=== PATIENT | female | born 1960 | race Caucasian/White ===

== ENCOUNTER → 2020-05-13 12:38 | Outpatient (CLI) | payer OTHER, SELFPAY ==
--- NOTE | ~2020-05-13 | MM_ITS ---
EXAMINATION: MM screening jessica BI w hellen HISTORY: Screening TECHNIQUE: Craniocaudal and mediolateral oblique 3-D tomosynthesis images were obtained and synthetic 2-D images were generated. CAD analysis was submitted and interpreted. COMPARISON: Comparison to multiple prior studies sequentially, with oldest reviewed study dated 02/20. BREAST PARENCHYMAL COMPOSITION: There are scattered areas of fibroglandular density. FINDINGS: There is no evidence of suspicious mass, calcification, or architectural distortion to sugg est malignancy in either breast. There has been no suspicious interval change. IMPRESSION: 1. No mammographic evidence of malignancy. 2. Recommend routine screening mammography in one year. BI-RADS Category 1: Negative Reviewed, dictated and finalized at location A.
== END ==
PROVIDERS: PCP Internal Medicine; Visit Provider Obstetrics & Gynecology
DX: Z12.31 Encounter for screening mammogram for malignant neoplasm of breast (principal)
CPT/HCPCS: 77063; 77067

== ENCOUNTER → 2021-04-18 14:16 | Outpatient (CLI) | payer OTHER, SELFPAY ==
--- NOTE | ~2021-04-18 | MR_ITS ---
EXAMINATION: MR brain/brain stem wo/w con EXAM DATE: 04/18/2021 15:31 INDICATION: Mental status change. Confusion. TECHNIQUE: Magnetic resonance imaging (MRI) of the brain/brain stem obtained without contrast. Sagit josh T1, axial diffusion, gradient echo (T2*), T1, T2, FLAIR sequences obtained. Patient was then inj ected with 10 cc intravenous Multihance contrast. Axial and coronal postcontrast T1 weighted sequence s obtained. There is no prior study for comparison. FINDINGS: Study is limited due to patient motion, some sequences were repeated. There are no areas of restricted diffusion to suggest acute infarction. There is no acute hemorrhage seen on the T2*, a hemosiderin sensitive sequence. No intraparenchymal brain mass. The ventricles are normal in size. There are no extra-axial collections. Flow voids are seen in the cerebral arteries on the T2-weight ed sequences consistent with their expected patency. The orbits are unremarkable. Soft tissue is un remarkable. There are no areas of abnormal enhancement on the postcontrast images. IMPRESSION: 1. Unremarkable brain MRI examination. Reviewed, dictated and finalized at location A.
[2021-04-18 15:11] LABS: Estimated Glomerular Filt Rate 56
== END ==
PROVIDERS: PCP Internal Medicine
DX: R41.82 Altered mental status, unspecified (principal)
CPT/HCPCS: 70553; A9577

== ENCOUNTER → 2021-05-30 10:42 | Outpatient (CLI) | payer OTHER, SELFPAY ==
--- NOTE | ~2021-05-30 | MM_ITS ---
EXAMINATION: MM screening jessica BI w hellen HISTORY: Screening TECHNIQUE: Craniocaudal and mediolateral oblique 3-D tomosynthesis images were obtained and synthetic 2-D images were generated. CAD analysis was submitted and interpreted. COMPARISON: Comparison to multiple prior studies sequentially, with oldest reviewed study dated 02/22. BREAST PARENCHYMAL COMPOSITION: There are scattered areas of fibroglandular density. FINDINGS: There is no evidence of suspicious mass, calcification, or architectural distortion to sugg est malignancy in either breast. There has been no suspicious interval change. IMPRESSION: 1. No mammographic evidence of malignancy. 2. Recommend routine screening mammography in one year. BI-RADS Category 1: Negative Reviewed, dictated and finalized at location A.
== END ==
PROVIDERS: PCP Internal Medicine; Visit Provider Obstetrics & Gynecology
DX: Z12.31 Encounter for screening mammogram for malignant neoplasm of breast (principal)
CPT/HCPCS: 77063; 77067

== ENCOUNTER 2022-02-21 08:41 | Emergency (ER) | payer OTHER, SELFPAY ==
--- NOTE | 2022-02-21 08:47 | ED.PSYCH ---
HPI - Psych General Chief Complaint: Psychiatric Symptoms Stated Complaint: AMBULANCE Source: patient, EMS and RN notes reviewed Mode of arrival: EMS Limitations: no limitations History of Present Illness HPI Narrative: Patient presents by EMS combative, screaming, grabbing at the EMS staff and hitting them. She is screaming that she is , incoherent references to colors red blue and white.Stating she wants to . I spoke with her following arrival and nurses spoke with following arrival. Apparently her [id number] 3 weeks ago. Rafaela had been dealing with getting hospital equipment into the [id number]'s room only for the [id number] to pass away 3 days later. Then she had to get all the medical equipment out of the room again and had to do all this by herself. she has been awake for greater than 24 hours and her states she has not been drinking fluids like she normally does. She has been under a lot of stress with the of the mother long and a 1 year anniversary of a cousin that that she was very close to in [place]. She was unable to go to [place] last year due to COVID. She has been rearranging furniture in the living room at home and not throwing things but when something gets in the way tossing it aside apparently broke a lamp. She had a full evaluation in [facility] and was sent to another physician who arranged her to see a psychologist. Psychologist felt that she needed psychiatric intervention at that time and she has an appointment in March. She has been using some Ativan and sometimes that helps and sometimes it does not. MD complaint: suicidal ideation and altered mental status Onset (ago): day(s) (1) Duration: constant History of same: No Relieving factors: none Exacerbating factors: none Associated psychiatric symptoms: suicidal ideation, racing thoughts and delusions Associated symptoms: insomnia Treatments prior to arrival: chemical restraints (Haldol and Versed) Related Data Home Medications Medication Instructions Recorded Confirmed lisinopril 2.5 mg tablet 2.5 mg PO DAILY 02/21/22 02/21/22 paroxetine HCl 20 mg tablet 20 mg PO DAILY 02/21/22 02/21/22 rosuvastatin 10 mg tablet 10 mg PO DAILY 02/21/22 02/21/22 Allergies Allergy/AdvReac Type Severity Reaction Status Date / Time No Known Allergies Allergy Verified 02/21/22 09:12 Review of Systems Review of Systems: ROS unobtainable: Yes unobtainable due to mental status [facility] Past Medical History Medical History (Updated 02/21/22 @ 13:00 by Evans Cristina MD) Anxiety and depression Hyperlipidemia Hypertension Seasonal allergies Social History Social History Substance use type: does not use Exam Const: General: healthy appearing Nutritional Appearance: thin Limitations: altered mental status HENMT: Head: normal to inspection Ears: external ears normal General nose exam: Normal external nose present Face and sinus: normal facial exam Eyes: Conjunctivae: conjunctivae normal Pupils: Equal, round and reactive pupils present EOM: EOMs intact bilaterally Neck: Neck: normal visual inspection Resp: Effort & Inspection: normal respiratory effort Auscultation: clear to auscultation bilaterally Cardio: Rate: tachycardic Rhythm: regular rhythm GI: GI Palp: Yes Soft to palpation and No Tenderness to palpation present (GI) Auscultation: normal bowel sounds Back/Spine/Pelvis: Cervical Spine: cervical ROM normal Thoracic/Lumbar Spine: thoraco-lumbar ROM normal Skin: General skin exam: normal color Wounds: no wounds Neuro: General: patient oriented x3, moves all extremities, no focal motor deficits and CN's II-XI intact bilaterally Speech: normal speech Extrem: General: normal to inspection and no clubbing, cyanosis or edema Psych: Speech and movement: Pressured speech present and Psychomotor agitation in speech present Affect: Labile affect present Attitude: Belligerent
[2022-02-21 09:02] VITALS: BP 140/107; PULSE 128; RESP 16; TEMP 36.6; O2SAT 100
[2022-02-21 09:20] LABS: Basophils Absolute Auto 0.08 K/mm3 (0.00-0.10); Basophils Percent Auto 0.6 % (0.0-1.0); Eosinophils Absolute Auto 0.03 K/mm3 (0.02-0.50); Eosinophils Percent Auto 0.2 % (1.0-6.0); Hematocrit 36.6 % (35.0-49.0); Immature Granulocyte Absolute 0.12 K/mm3 (0.00-0.00); Immature Granulocyte Percent A 0.9 % (0.0-0.0); Lymphocytes Absolute Auto 1.81 K/mm3 (1.10-4.50); Lymphocytes Percent Auto 14.1 % (18.0-42.0); Mean Corpuscular HGB Conc 32.8 g/dL (32.0-36.0); Mean Corpuscular Hemoglobin 31.2 pg (27.0-31.0); Mean Corpuscular Volume 95.1 fL (78.0-102.0); Mean Platelet Volume 9.8 fl (9.2-11.8); Monocytes Absolute Auto 1.01 K/mm3 (0.10-0.90); Monocytes Percent Auto 7.9 % (2.0-11.0); Neutrophils Absolute Auto 9.8 K/mm3 (1.7-7.2); Neutrophils Percent Auto 76.3 % (50.0-70.0); Platelet Count Result 315 K/mm3 (150-420); Red Blood Count 3.85 M/mm3 (4.20-5.40); Red Cell Distribution Width 14.4 % (11.6-14.4); White Blood Count 12.8 K/mm3 (4.8-10.8)
[2022-02-21 09:21] LABS: Add Urine Microscopic? YES; Appearance Urine Clear (Clear); Bilirubin Urine Negative (Negative); Blood Urine 1+ (Negative); Color Urine Yellow (Yellow); Glucose Urine UA Negative (Negative); Ketones Urine 1+ (Negative); Leukocyte Esterase Ur Negative LEU/UL (Negative); Nitrate Urine Negative (Negative); Protein Urine 2+ (Negative); Specific Grav Ur >= 1.030 (1.010-1.020); Urobilinogen Urine 0.2 mg/dL (0.2-1.0)
[2022-02-21 09:39] LABS: Bacteria Urine Trace /hpf; RBC Urine 0-2 /hpf (0-2); Squamous Epithelial Cell Urine Rare /hpf (Few); WBC Urine None seen /hpf (0-3)
--- NOTE | 2022-02-21 09:45 | PC.NURSE ---
patient is sitting up drinking water and is provided blanket. patient is more alert and oriented at this time and friend is at bedside. patient states she needs some sleep its been several days and she is tired.
[2022-02-21 09:46] LABS: Amphetamine Screen Urine Negative (Negative); Barbiturate Screen Urine Negative (Negative); Benzodiazepines Screen Urine Positive (Negative); Cannabinoid Screen Urine Positive (Negative); Cocaine Screen Urine Negative (Negative); Methadone Screen Urine Negative (Negative); Opiate Screen Urine Negative (Negative); Phencyclidine Screen Urine Negative (Negative)
[2022-02-21 09:55] LABS: Alanine Aminotransferase 33 U/L (14-59); Albumin Level 4.1 g/dL (3.4-5.0); Alkaline Phosphatase 97 U/L (46-116); Anion Gap 13 mmol/L (8-16); Aspartate Amino Transferase 27 U/L (15-37); Bilirubin,Total 0.5 mg/dL (0.00-1.00); Blood Urea Nitrogen 15 mg/dL (7-18); Calcium 9.8 mg/dL (8.5-10.1); Carbon Dioxide 24 mmol/L (21-32); Chloride 104 mmol/L (98-108); Estimated Glomerular Filt Rate > 60; Glucose 122 mg/dL (70-99); Osmolality Calculated 293 mOsm/kg (285-295); Potassium 3.8 mmol/L (3.5-5.1); Sodium 141 mmol/L (136-145); Thyroid Stimulating Hormone 0.87 uIU/mL (0.36-3.74); Total Protein 7.8 g/dL (6.4-8.2)
[2022-02-21 09:57] LABS: Ethanol < 3 mg/dL (0-6)
--- NOTE | 2022-02-21 13:07 | PC.NURSE ---
consuelo negron has finished speaking with and patient, patient has been deflected home.
[2022-02-21 13:08] VITALS: BP 133/59; PULSE 88; RESP 16; TEMP 36.9; O2SAT 99
== END 2022-02-21 13:10 | disposition home or self-care (01) ==
PROVIDERS: Emergency Provider Emergency Medicine; PCP Internal Medicine
DX: F29 Unspecified psychosis not due to a substance or known physiological condition (principal); F41.9 Anxiety disorder, unspecified; F32.A Depression, unspecified; I10 Essential (primary) hypertension
CPT/HCPCS: 36415; 80053; 80307; 81001; 84443; 85025; 99284

== ENCOUNTER 2022-02-21 15:50 | Emergency (ER) | payer OTHER, SELFPAY ==
--- NOTE | 2022-02-21 15:55 | ED.PSYCH ---
HPI - Psych General Chief Complaint: Psychiatric Symptoms Stated Complaint: AMS Time Seen by Provider: 02/21/22 15:55 Source: patient, family and RN notes reviewed Mode of arrival: ambulatory Limitations: no limitations History of Present Illness HPI Narrative: patient was here earlier today with same symptoms. She was seen by counselor who deflected her home for close follow-up. Family states that she went home that helped her shower she took a half of her Ativan and smokes some marijuana the canned having more agitation family was unable to control her so they brought her back. MD complaint: other ( anxiety, delusions flight of ideas) Onset (ago): day(s) (2) Duration: constant History of same: Yes Relieving factors: none Exacerbating factors: none Associated psychiatric symptoms: racing thoughts and delusions Associated symptoms: denies other symptoms Treatments prior to arrival: none Related Data Home Medications Medication Instructions Recorded Confirmed lisinopril 2.5 mg tablet 2.5 mg PO DAILY 02/21/22 02/21/22 lorazepam 1 mg tablet 1 mg PO PRN 02/21/22 02/21/22 paroxetine HCl 20 mg tablet 20 mg PO DAILY 02/21/22 02/21/22 rosuvastatin 10 mg tablet 10 mg PO DAILY 02/21/22 02/21/22 Allergies Allergy/AdvReac Type Severity Reaction Status Date / Time No Known Allergies Allergy Verified 02/21/22 16:09 Review of Systems Review of Systems: All systems reviewed & are unremarkable except as noted in HPI and below ROS unobtainable: Yes unobtainable due to mental status PMFSH Past Medical History Medical History Anxiety and depression Hyperlipidemia Hypertension Seasonal allergies Social History Social History Substance use: current Substance use type: marijuana Living arrangements: with family Exam Const: General: no acute distress Nutritional Appearance: well nourished and thin Orientation/consciousness: patient oriented x3 Limitations: altered mental status Other: female nurse in room during examination. HENMT: Head: normal to inspection Ears: external ears normal Face and sinus: normal facial exam Eyes: Conjunctivae: conjunctivae normal Pupils: Equal, round and reactive pupils present EOM: EOMs intact bilaterally Neck: Neck: normal visual inspection Resp: Effort & Inspection: normal respiratory effort Auscultation: clear to auscultation bilaterally Cardio: Rate: regular rate Rhythm: regular rhythm GI: GI Palp: Yes Soft to palpation and No Tenderness to palpation present (GI) Auscultation: normal bowel sounds Back/Spine/Pelvis: Cervical Spine: cervical ROM normal Thoracic/Lumbar Spine: thoraco-lumbar ROM normal Skin: General skin exam: normal color Neuro: General: moves all extremities, no focal motor deficits and CN's II-XI intact bilaterally Speech: normal speech Extrem: General: normal to inspection and no clubbing, cyanosis or edema Psych: Appearance: disheveled Speech and movement: Clear speech present, Pressured speech present, Psychomotor agitation in speech present and Restless speech present Affect: Labile affect present Attitude: Belligerent attititude/behavior present Thought process: Flight of ideas present Thought content: Yes delusions Insight: Poor insight present (Psych) Judgement: Poor judgement present (Psych) Course Course Emergency Course: Patient is medically cleared for admission and transferred to a psychiatric facility Vital Signs Vital signs: Vital Signs Temperature 36.8 C 02/21/22 16:02 Pulse Rate 126 H 02/21/22 16:02 Respiratory Rate 20 02/21/22 16:02 Blood Pressure 179/90 H 02/21/22 16:02 Pulse Oximetry 100 02/21/22 16:02 Oxygen Delivery Room Air 02/21/22 16:02 Temperature 36.8 C 02/21/22 16:02 Pulse Rate 90 02/21/22 22:48 Respiratory Rate 20 02/21/22 22:48 Blood Pressure 170/80 H 02/21/22 22:48
[2022-02-21 16:02] VITALS: BP 179/90; PULSE 126; RESP 20; TEMP 36.8; O2SAT 100
--- NOTE | 2022-02-21 17:24 | PC.NURSE ---
patient took off shirt and bra, patient attempted to be redirected and placed in paper scrub top which patient would not stop wrapping around neck and over head. patient then ripped off scrub top and threw onto floor. patient then climbed onto stretcher and stood up and started playing with moving parts and mechanism of bed. stretcher removed from bed, and patient is left with mattress at this time.
--- NOTE | 2022-02-21 17:50 | PC.NURSE ---
patient has stripped off all clothing and clothing has been removed from room. patient dancing around room, singing, and showing signs of hallucinations by gestures.
--- NOTE | 2022-02-21 18:44 | PC.NURSE ---
patient was found opening zipper on Mattress and taring up inside material and placing cloth from inside over her head. patient redirected and Mattress taken out of room.
--- NOTE | 2022-02-21 19:22 | PC.NURSE ---
report received from Priya NORIEGA
[2022-02-21] MEDS: HALOPERIDOL LACTATE 5 MG/ML VIAL IM (20:42)
[2022-02-21 22:19] LABS: SARS-CoV-2 Ag Negative (Negative)
--- NOTE | 2022-02-21 22:41 | ECG_ITS ---
Measurements Intervals [place] Rate: 91 P: 60 SD: 124 QRS: 20 QRSD: 87 T: 61 QT: 377 QTc: 464 Interpretive Statements SINUS RHYTHM POSSIBLE LEFT ATRIAL ENLARGEMENT CANNOT RULE OUT SEPTAL INFARCT, AGE INDETERMINATE BASELINE ARTIFACT- I, II, III, AVR, AVL, AVF, V1-V6 ABNORMAL ECG Electronically Signed On 02-22-2022 6:12:04 CDT by Joseph Abarca D.O.
[2022-02-21] MEDS: diphenhydrAMINE HCl INJ 50 MG/ML VIAL (22:45)
[2022-02-21] MEDS: HALOPERIDOL LACTATE 5 MG/ML VIAL (22:45)
[2022-02-21 22:48] VITALS: BP 170/80; PULSE 90; RESP 20; O2SAT 98
--- NOTE | 2022-02-21 23:33 | PC.NURSE ---
Pt medically cleared for transfer via ems per MD
--- NOTE | 2022-02-22 00:04 | PC.NURSE ---
pt was offered food and declined
--- NOTE | 2022-02-22 00:44 | PC.NURSE ---
pt accepted to [id number], dr ortiz accepting, report called to gaston
== END 2022-02-22 01:18 ==
PROVIDERS: Emergency Provider Emergency Medicine; PCP Internal Medicine
DX: F29 Unspecified psychosis not due to a substance or known physiological condition (principal); F41.9 Anxiety disorder, unspecified; F32.A Depression, unspecified; E78.5 Hyperlipidemia, unspecified; I10 Essential (primary) hypertension; Z20.822 Contact with and (suspected) exposure to COVID-19
CPT/HCPCS: 87426; 93005; 96372; 99285; C9803; J1200; J1630

== ENCOUNTER 2024-04-09 15:11 | Emergency (ER) | payer OTHER, SELFPAY ==
--- NOTE | 2024-04-09 15:23 | ED.WOUNDLAC ---
HPI - Wound/Laceration General Chief Complaint: Wound/Laceration Stated Complaint: LACERATION, HAND Source: patient Mode of arrival: ambulatory Limitations: no limitations History of Present Illness HPI narrative: 63-year-old Female with anxiety/ depression, hypertension, dyslipidemia was trimming plans when she accidentally cut the tip of left ring finger. There is skin loss over an area of 1.5 cm X 5 mm. Patient is unsure about her tetanus status. Onset (ago): hour(s) ( 1 hour ago) Location: other ( left ring finger) Place: home Patient tetanus UTD: Yes Context: accidental Associated symptoms: none Related Data Home Medications Medication Instructions Recorded Confirmed lisinopril 2.5 mg tablet 2.5 mg PO DAILY 02/21/22 04/09/24 rosuvastatin 10 mg tablet 10 mg PO DAILY 02/21/22 04/09/24 Allergies Allergy/AdvReac Type Severity Reaction Status Date / Time Sulfa (Sulfonamide Allergy Vomiting Verified 04/09/24 15:26 Antibiotics) Review of Systems Review of Systems: All systems reviewed & are unremarkable except as noted in HPI and below PMFSH Past Medical History Medical History Anxiety and depression Hyperlipidemia Hypertension Seasonal allergies Social History Social History Substance use: current Substance use type: marijuana Living arrangements: with family Exam Const: General: cooperative HENMT: Head: normal to inspection, normocephalic and atraumatic Ears: hearing grossly normal bilaterally and external ears normal Face/Nose/Sinus: Normal external nose present and Normal nares present Face and sinus: normal facial exam Mouth: Yes Normal oral and palatal mucosa present Eyes: General: appearance normal, both eyes and all related structures Pupils: Equal, round and reactive pupils present Neck: Neck: normal visual inspection, full ROM and no lymphadenopathy Chest: Chest palpation & inspection: normal inspection of the chest Resp: Effort & Inspection: normal respiratory effort Auscultation: clear to auscultation bilaterally Cardio: Palpation: normal PMI Rate: regular rate Rhythm: regular rhythm Heart sounds: S1 normal heart sound present and S2 normal heart sound present GI: Inspection: normal to inspection Abdomen image: 1. 1.5 cm X 0.5 cm skin loss : General: Yes no CVA tenderness Back/Spine/Pelvis: Back: no CVA tenderness Skin: General skin exam: normal color and other ( left ring finger 1.5 cmX 0.5 cm skin loss) Neuro: General: oriented to person, oriented to place and oriented to time Extrem: General: normal to inspection, full ROM and capillary refill normal Hand/finger images: 1. 1.5 X 0.5 cm skin loss Psych: Appearance: grossly normal Course Course Emergency Course: left ring finger laceration /skin loss-- cannot suture it as it will cause narrowing of distal finger. Vital Signs Vital signs: Vital Signs Temperature 36.7 C 04/09/24 15:27 Pulse Rate 103 H 04/09/24 15:27 Respiratory Rate 20 04/09/24 15:27 Blood Pressure 187/90 H 04/09/24 15:27 Pulse Oximetry 99 04/09/24 15:27 Oxygen Delivery Room Air 04/09/24 15:27 Temperature 36.7 C 04/09/24 15:27 Pulse Rate 103 H 04/09/24 15:27 Respiratory Rate 20 04/09/24 15:27 Blood Pressure 187/90 H 04/09/24 15:27 Pulse Oximetry 99 04/09/24 15:27 Oxygen Delivery Room Air 04/09/24 15:27 MDM - Wound/Laceration MDM Narrative Medical decision making narrative: Left ring finger skin avulsion Differential Diagnosis Differential diagnosis: Likely laceration and avulsion of skin Discharge Plan Discharge Clinical Impression: Avulsion of skin Finger laceration Qualifiers: Encounter type: initial encounter Finger: ring finger Damage to nail status: with damage Foreign body presence: without foreign body Laterality: left Qualified
[2024-04-09 15:27] VITALS: BP 187/90; PULSE 103; RESP 20; TEMP 36.7; O2SAT 99
[2024-04-09 15:45] VITALS: BP 139/102; PULSE 90; RESP 20; TEMP 36.7; O2SAT 98
[2024-04-09] MEDS: NEOMYCIN/POLYMYXIN/BACITRACIN OINTMENT PACKET 1 PACKET TOPICAL (15:45)
== END 2024-04-09 15:47 | disposition home or self-care (01) ==
LOC: CHSED 15:39
PROVIDERS: Emergency Provider Internal Medicine Critical Care Medicine
DX: S61.315A Laceration without foreign body of left ring finger with damage to nail, initial encounter (principal); E78.5 Hyperlipidemia, unspecified; I10 Essential (primary) hypertension; W45.8XXA Other foreign body or object entering through skin, initial encounter
CPT/HCPCS: 99282

== ENCOUNTER 2024-06-19 14:05 | Outpatient (CLI) | payer OTHER, SELFPAY ==
--- NOTE | ~2024-06-19 | MM_ITS ---
EXAMINATION: MM screening [facility] BI w hellen HISTORY: Screening mammogram TECHNIQUE: Craniocaudal and mediolateral oblique 3-D tomosynthesis images were obtained and synthetic 2-D images were generated. CAD analysis was submitted and interpreted. COMPARISON: 05/30/2021, 05/13/2020, 03/03/2019 BREAST PARENCHYMAL COMPOSITION:Not Dense. There are scattered areas of fibroglandular density. FINDINGS: No suspicious mass, calcification, or architectural distortion are identified in either karlos ast to suggest malignancy. There has been no suspicious interval change. IMPRESSION: No mammographic evidence of malignancy. Recommend routine screening mammography in one year. BI-RADS Category 1: Negative Reviewed, dictated and finalized at location .
== END 2024-06-19 14:06 | disposition home or self-care (01) ==
LOC: MICIMG 14:07
PROVIDERS: PCP Obstetrics & Gynecology
DX: Z12.31 Encounter for screening mammogram for malignant neoplasm of breast (principal)
CPT/HCPCS: 77063; 77067

== ENCOUNTER 2025-02-26 10:13 | Outpatient (CLI) | payer MEDICARE, SELFPAY ==
--- NOTE | ~2025-02-26 | DEXA_ITS ---
Bone Density Report Name: DEAN BEE Age: 64 Sex: Female Ethnicity: White Date of : 1960 Indication: osteopenia; height loss; Referring Provider: UNKNOWN, UNKNOWN Study: Bone densitometry was performed. Exam Date: February 26, 2025 Accession number: [id number] Bone Density: Region BMD T-score Z-score Classification AP Spine(L1-L4) 0.741 -2.8 -1.0 Osteoporosis Femoral Neck (Left) 0.528 -2.9 -1.4 Osteoporosis Total Hip (Left) 0.623 -2.6 -1.4 Osteoporosis Femoral Neck (Right) 0.508 -3.1 -1.5 Osteoporosis Total Hip (Right) 0.618 -2.7 -1.4 Osteoporosis Total Hip Mean 0.621 -2.7 -1.4 Osteoporosis World Health Organization criteria for BMD impression classify patients as: Normal (T-score at or above -1.0), Osteopenia (T-score between -1.0 and -2.5), or Osteoporosis (T-score at or below -2.5). 10-year Fracture Risk: FRAX not reported because: Some T-score for Spine Total or Hip Total or Femoral Neck at or below -2.5 Previous Exams: -- Region Exam Age BMD T-score BMD Change BMD Change Date g/cm2 vs Baseline vs Previous -- AP Spine (L1-L4) 02/26/2025 64 0.741 -2.8 -11.7%# -9.6%# 02/26/2018 57 0.819 -2.1 -2.4% -2.4% 09/19/2012 52 0.839 -1.9 Total Hip(Left) 02/26/2025 64 0.623 -2.6 -23.3%# -12.8%# 02/26/2018 57 0.714 -1.9 -12.0%* -12.0%* 09/19/2012 52 0.811 -1.1 Total Hip(Right) 02/26/2025 64 0.618 -2.7 -21.6%# -14.9%# 02/26/2018 57 0.727 -1.8 -7.9%* -7.9%* 09/19/2012 52 0.789 -1.3 -- *Denotes significance at 95% confidence level, LSC for AP Spine = 0.022 g/cm2, LSC for Total Hip = 0.027 g/cm2 # Denotes dissimilar scan types or analysis methods Clinical Information Provided by Patient: Has used the following medications: Vitamin D, Calcium Patient maximum height was 61 Menopause Age: 48 Drinks caffeinated beverages Onset of menses at age 10 Number of children 3 Impression: The patient has osteoporosis, based on the Right Femoral Neck T-score. Unable to evaluate interval change due to the use of different scan modes. Discussion: INCREASED RISK OF FRACTURE. BONE DENSITY IS UNDESIRABLY LOW AT ONE OR MORE SKELETAL SITES, CONSISTENT WITH POSTMENOPAUSAL OSTEOPOROSIS. This patient's lowest T-score meets the World Health Organization's (WHO) criteria for osteoporosis at one or more sites (T-score -2.5 or below). In untreated patients, the risk of osteoporotic fracture increases approximately two-fold for each 1.0 SD decrease in T-score. Low bone density is not the only risk factor for fracture; also consider factors such as patient's age, frailty or poor health, risk of falling, risk of injury, previous osteoporotic fracture, family history of osteoporosis, cigarette smoking, low body weight, etc. Not everyone with low bone mineral density has osteoporosis; osteomalacia and other metabolic bone disorders should also be considered. Patients who have osteoporosis should be evaluated for specific diseases and conditions (secondary causes) that may cause or contribute to bone loss. The [place] [employer]ocrin[employer] (AACE) and National Osteoporosis Foundation (NOF) recommend pharmacologic intervention for all postmenopausal women whose T-score is in this range. The patient should follow a healthful lifestyle (good nutrition with adequate calcium and vitamin D, and appropriate weight-bearing exercise). Follow-Up: Consider a repeat BMD and Vertebral Fracture Assessment (VFA) exam in 2 years or sooner if medically necessary, to reassess this patient's status. Reported by: MONICA on 02/26/2025 10:43:00 AM. Reviewed, dictated and finalized at location A.
== END 2025-02-26 10:14 | disposition home or self-care (01) ==
LOC: MICIMG 10:14
PROVIDERS: PCP Obstetrics & Gynecology
DX: Z13.820 Encounter for screening for osteoporosis (principal); M81.0 Age-related osteoporosis without current pathological fracture
CPT/HCPCS: 77080